=== PATIENT | female | born 1990 | race Caucasian/White ===

== ENCOUNTER 2018-08-19 09:58 | Emergency (ER) | payer OTHER ==
[~2018-08-19] VITALS: Ht 154.9 cm; Wt 58.1 kg
[2018-08-19] MEDS ORDERED: LISINOPRIL10 MG PO (10:14)
[2018-08-19] MEDS ORDERED: MEDROL DOSPAK21 TA1 PO (10:40)
[2018-08-19 10:55] VITALS: BP 147/78
== END 2018-08-19 10:55 | disposition home or self-care (01) ==
LOC: M.ERS 09:58
DX: G62.9 Polyneuropathy, unspecified (principal); Z88.8 Allergy status to other drugs, medicaments and biological substances

== ENCOUNTER 2018-08-29 09:16 | Emergency (ER) | payer OTHER ==
[~2018-08-29] VITALS: Ht 154.9 cm; Wt 59.0 kg
[~2018-08-29 09:16] MED LIST: LISINOPRIL10 MG PO; MEDROL DOSPAK21 TA1 PO
[2018-08-29 09:49] LABS: ABSOLUTE EOSINOPHILS 0.1 thou/uL (0.0-0.7); ABSOLUTE LYMPHOCYTES 1.4 thou/uL (0.8-5.3); ABSOLUTE MONOCYTES 0.6 thou/uL (0.0-1.2); ABSOLUTE NEUTROPHILS 2.9 thou/uL (1.6-8.1); HEMATOCRIT 45.5 % (37.0-47.0); HEMOGLOBIN 15.7 gm/dL (12.0-15.0); LYMPHOCYTES 28.4 %; MCH 34.5 pg (26.0-34.0); MCHC 34.6 g/dL (28.0-37.0); MCV 99.6 fL (80.0-100.0); MONOCYTES 11.8 %; MPV 9.2 fl. (7.2-11.1); NUCLEATED RBCS 0 /100WBC; PLATELET COUNT* 267 thou/uL (150-400); POLYS 56.8 %; RBC 4.57 mil/uL (4.20-5.00); RDW-CV 11.8 % (10.5-14.5); WBC 5.1 thou/uL (4.0-11.0)
[2018-08-29 09:57] LABS: APTT 25.2 Seconds (25.0-31.3); PROTIME 10.4 Seconds (9.20-11.50)
[2018-08-29 10:03] LABS: ANION GAP 10 mmol/L (7-16); BUN 10 mg/dL (7-18); CALCIUM 8.6 mg/dL (8.5-10.1); CHLORIDE 104 mmol/L (98-107); CO2 23 mmol/L (21-32); CREATININE 0.7 mg/dL (0.6-1.3); GLUCOSE 130 mg/dL (70-99); POTASSIUM 3.6 mmol/L (3.5-5.1); SODIUM 137 mmol/L (136-145)
[2018-08-29 10:13] LABS: ALBUMIN 4.2 g/dL (3.4-5.0); ALKALINE PHOSPHATASE 55 U/L (46-116); LIPASE 105 U/L (73-393); NT-PRO BRAIN NAT PEPTIDE 16 pg/mL (<300); SGOT 16 U/L (15-37); SGPT 20 U/L (30-65); TOTAL BILIRUBIN 0.8 mg/dL (<0.1-1.0); TOTAL PROTEIN 7.1 g/dL (6.4-8.2); TROPONIN-I LEVEL <0.06 ng/mL (<0.06)
[2018-08-29 10:21] LABS: LARGE PLATELETS FEW; PLATELET ESTIMATE ADEQUATE
[2018-08-29 10:39] VITALS: BP 98/68
--- NOTE | 2018-08-29 14:23 | EKG ---
[place] [address] ELECTROCARDIOGRAM REPORT Name: HERNESTOKENISHA Luciano Room: [facility]#: [id number] Admission: 08/29/18 Attend Phys: Discharge: 08/29/18 Date of : 86 Report #: [id number] THIS REPORT FOR: //name// [facility] ED Test Date: 2018-08-29 Test Time: 09:25:42 Pat Name: KENISHA ERIC Department: Room: Gender: F [employer]: Odell RAMIREZ : 1990 Requested By: Jason Burks Order Number: [id number] MD: Thang Osuna Measurements Intervals [place] Rate: 65 P: 48 MT: 159 QRS: 2 QRSD: 84 T: 46 QT: 372 QTc: 387 Interpretive Statements Sinus rhythm No previous ECG available for comparison Electronically Signed On 08-29-2018 14:23:06 [employer] by Thang Osuna [email or web address] <ELECTRONICALLY SIGNED> By: Thang Osuna MD, [facility] 08/29/18 1423 0925 0925 Thang Osuna MD, FACC /EPI
== END 2018-08-29 10:39 | disposition home or self-care (01) ==
LOC: M.ERS 09:16
PROVIDERS: Family Medicine
DX: R55 Syncope and collapse (principal)